=== PATIENT | male | born 2000 | race Caucasian/White ===

== ENCOUNTER 2023-03-08 14:59 | Outpatient (REF) | payer BC, SELFPAY ==
--- NOTE | ~2023-03-08 | MR_ITS ---
EXAMINATION: MR SHOULDER WITHOUT CONTRAST, RIGHT CLINICAL INFORMATION: Right shoulder pain and instability. Prior labral repair. COMPARISON: None available. TECHNIQUE: MRI of the shoulder without contrast was performed on a high-field scanner. FINDINGS: ROTATOR CUFF: Intact. No muscle atrophy or fatty infiltration. BICEPS: Intact. CORACOACROMIAL ARCH: The undersurface of the acromion is flat with no subacromial spur. Acromioclavicular joint space widening with a small joint effusion, likely indicating sequela of remote trauma. Mild degenerative change. No edema to suggest acute injury. LABRUM/CAPSULE: Linear fluid signal within the undersurface of the superior labrum as well as shallow linear fluid signal within the undersurface of the posterior labrum, consistent with nondisplaced undersurface tearing. Postsurgical change consistent with prior anterior and anteroinferior labral repair. There is fluid signal extending through the base of the anterior and anteroinferior labrum, consistent with recurrent tearing. 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 Intact joint capsule. GLENOHUMERAL JOINT/MARROW: Intact articular cartilage. No acute fracture or dislocation. Humeral head well seated within the glenoid. No Hill-Sachs deformity. Small joint effusion with mild synovitis. MR/MR shoulder RT wo con IMPRESSION: 1. Postsurgical change consistent with prior anterior and anteroinferior labral repair. Findings consistent with recurrent tearing through the base of the anterior and anteroinferior labrum. 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 No Hill-Sachs deformity. 2. Nondisplaced undersurface tearing of the superior and posterior labrum. 3. Small glenohumeral joint effusion with mild synovitis. 4. Widening of the acromioclavicular joint with a small joint effusion, likely indicating sequela of remote trauma. No edema to suggest acute injury.
== END 2023-03-08 15:00 | disposition home or self-care (01) ==
LOC: HO.MRI 14:59
PROVIDERS: Visit Provider Family Medicine
DX: M25.511 Pain in right shoulder (principal)
CPT/HCPCS: 73221

== ENCOUNTER 2024-04-09 09:46 | Emergency (ER) | payer BC, SELFPAY ==
[2024-04-09 09:55] VITALS: BP 113/60; PULSE 47; RESP 16; TEMP 36.6; O2SAT 98; BMI 27.1
--- NOTE | 2024-04-09 13:35 | PC.NURSE ---
Pt left after speaking with RN regarding the dangers of not getting rabies vaccination. YULI Gaitan also spoke with patient and was in agreeance
== END 2024-04-09 14:42 | disposition left against medical advice (07) ==
PROVIDERS: Emergency Provider Emergency Medicine Emergency Medical Services; PCP Family Medicine
DX: S81.852A Open bite, left lower leg, initial encounter (principal); W54.0XXA Bitten by dog, initial encounter; Y93.9 Activity, unspecified; Y92.9 Unspecified place or not applicable; Y99.9 Unspecified external cause status; Z53.21 Procedure and treatment not carried out due to patient leaving prior to being seen by health care provider
CPT/HCPCS: 99281